=== PATIENT | male | born 1950 | race Caucasian/White ===

== ENCOUNTER 2017-08-17 13:45 | Emergency (ER) | payer BC, SELFPAY ==
[2017-08-17 13:45] VITALS: BP 121/73; PULSE 103; RESP 16; TEMP 36.3; O2SAT 96; BMI 26.1
[2017-08-17 14:25] LABS: Absolute Lymphocyte Count 1.78 X10^3/ul (0.83-4.51); Basophil# 0.02 X10^3/uL; Basophil% 0.2 % (0-1); Eosinophil# 0.32 X10^3/uL; Eosinophils% 3.5 % (0-5); Hematocrit 41.6 % (40-54); Lymphocyte # 1.78 X10^3/ul (4.0); Lymphocyte % 19.2 % (19-41); Mean Corp Hgb Conc 33.7 g/gl (32-36); Mean Corpuscular Hgb 29.6 pg (27.0-32.0); Mean Corpuscular Volume 87.9 fL (80-94); Mean Platelet Vol. 10.2 fl (6.2-12.0); Monocyte# 1.13 X10^3/uL; Monocyte% 12.2 % (0-10); Neutrophil # 5.98 X10^3/uL (2.7-7.7); Neutrophil % 64.6 % (47-70); POSITIVE COUNT NO; POSITIVE DIFFERENTIAL NO; POSITIVE MORPHOLOGY NO; Platelet Count 218 K/mm3 (150-450); RBC Distribution Width CV 13.8 % (11.6-14.6); Red Blood Count 4.73 M/mm3 (4.6-6.2); White Blood Count 9.3 K/mm3 (4.4-11.0)
[2017-08-17 14:40] LABS: ALB/GLOB Ratio 0.8 RATIO (0.9-2.4); AST(SGOT) 22 U/L (15-37); Alanine Aminotransfer ALT/SGPT 20 U/L (16-61); Albumin, Serum 3.2 g/dL (3.2-5.0); Alkaline Phosphatase 95 U/L (45-117); Anion Gap 7 (5-15); BUN 8 mg/dL (7-18); BUN/Creat Ratio 6.6 RATIO (10-20); Calcium,Total 8.4 mg/dL (8.5-10.1); Chloride 102 mmol/L (98-107); Creatinine, Serum 1.22 mg/dL (0.70-1.30); EST Glomerular Filtration Rate 63 mL/min (>60); Est Glom Filt Rate - Afr Amer 76 mL/min (>60); Estimated Creatinine Clearance 57.95 ml/min; Globulin 4.2 g/dL (2.2-4.2); Glucose 106 mg/dL (74-106); Potassium 3.3 mmol/L (3.5-5.1); Protein, Total 7.4 g/dL (6.4-8.2); Sodium Level 138 mmol/L (136-145)
--- NOTE | 2017-08-17 15:16 | ED.DCSUM_ITS ---
- ER Visit Summary Date of Service: 08/17/17 Chief Complaint: Diarrhea History of Present Illness: The patient is a 67 M who presents with diarrhea. He has had this for 3 weeks. He was concerned today because he saw some blood with it. He denies any abdominal pain, nausea or vomiting. He has been trying Imodium that does help slightly but then it returns. He has never had any abdominal surgeries. He has had C. difficile and enteric pathogens testing as an outpatient both of which were negative. Physical Examination: Vital signs reviewed. HEENT exam unremarkable. Heart is regular rate and rhythm without murmurs. Lungs are clear to auscultation. Abdomen is soft and nontender. Extremities reveal no edema. Skin exam normal. Neurologic exam normal. Test Results: Labs are unremarkable except for potassium of 3.3. Hemoglobin normal Emergency Department Course and Treatment: Patient was given IV fluids. He feels improved. I will give him Lomotil for his diarrhea. He will need to follow-up with his primary care physician if his diarrhea persists. Treatment Plan: [] Disposition: Discharge Impression: Diarrhea This note was generated with [facility] dictation software. It may contain incorrect words, spelling, and punctuation that were not noted in review of the chart prior to signing ED Disposition - Plan for ED Patient: Chief Complaint: Diarrhea Referrals: Chyna Luna MD [Primary Care Provider] -
--- NOTE | 2017-08-17 15:16 | ED.DEP ---
ED Disposition - Plan for ED Patient: Disposition: Home or Assisted Living Chief Complaint: Diarrhea Instructions: ED Diarrhea Viral Prescriptions: Diphenoxylate/Atrop [Lomotil] 1 tab PO TID PRN PRN #30 tab PRN Reason: Diarrhea Referrals: Chyna Luna MD [Primary Care Provider] -
[2017-08-17 15:33] VITALS: BP 116/77; PULSE 83; RESP 16
== END 2017-08-17 15:34 | disposition home or self-care (01) ==
PROVIDERS: Emergency Provider Emergency Medicine; Family Provider Internal Medicine; PCP Internal Medicine
DX: R19.7 Diarrhea, unspecified (principal); Z79.899 Other long term (current) drug therapy; Z87.442 Personal history of urinary calculi; Z86.73 Personal history of transient ischemic attack (TIA), and cerebral infarction without residual deficits
CPT/HCPCS: 80053; 85025; 99283; J7040; A4216

== ENCOUNTER 2017-09-13 11:12 | Emergency (ER) | payer BC, SELFPAY ==
[2017-09-13 11:13] VITALS: BP 112/88; PULSE 119; RESP 18; TEMP 36.9; O2SAT 95; BMI 24.5
--- NOTE | 2017-09-13 11:23 | CT_ITS ---
STUDY: CT ABDOMEN AND PELVIS WITH CONTRAST REASON FOR EXAM: Male, 67 years old. Crohn's disease. History of nausea and vomiting. RADIATION DOSAGE (If Supplied By Facility): CTDIvol = ( 14.05 ) mGy, DLP = ( 781.76 ) mGycm TECHNIQUE: Transaxial images were obtained from the dome of the diaphragm to the symphysis pubis with oral contrast. 100 ml of Isovue 300 contrast was administered. Sagittal and coronal images were reconstructed. Individualized dose optimization techniques were used for this CT. COMPARISON: Comparison is made with prior study dated April 10, 2016. FINDINGS: Stable mild degree of increased markings at the lung bases suggestive of underlying atelectasis and/or scarring. The visualized portions of the heart are within normal limits. There is decreased attenuation of the liver consistent with steatosis. Solitary gallstone in the region of the neck of the gallbladder. This is unchanged. Normal spleen. Normal pancreas. Normal bilateral adrenal glands. There are 2 adjacent 1 cm stones in the mid lower portion of the right kidney. There is a 6.2 mm nonobstructive calculus in the upper pole of the left kidney. Tiny nonobstructive calculi also seen in the midportion of the left kidney as well as a 8.6 mm calyx in the lower pole of the left kidney. There is evidence of diffuse left renal atrophy. There is a small hiatal hernia. Normal small intestine. There is diffuse circumferential wall thickening of the entire colon with increased markings in the surrounding peritoneal fat in keeping with diffuse colitis. The appendix is visualized and appears normal. There is diffuse atherosclerotic calcification of the abdominal aorta. There is a dilatation of the distal portion of the aorta with a transverse dimension of 2.8 cm. Mural thrombus is seen. Normal inferior vena cava. Normal retroperitoneum. Normal urinary bladder. There is a small umbilical hernia containing fat. There are degenerative changes of the visualized lumbar spine. CT/Abdomen/Pelvis WITH Contrast IMPRESSION: Diffuse colitis with increased markings in the surrounding peritoneal fat. This is worse in the right hemicolon. Solitary gallstone in the neck of the gallbladder. Atrophy of the left kidney with bilateral nonobstructive intrarenal calculi. Electronically Signed: Michelet Hudson MD at 14:07 EDT Tel [phone], Service support ,
--- NOTE | 2017-09-13 11:23 | EKG12_ITS ---
Test Reason : N/V/D Blood Pressure : / mmHG Vent. Rate : 100 BPM Atrial Rate : 100 BPM P-R Int : 128 ms QRS Dur : 088 ms QT Int : 358 ms P-R-T Axes : 035 012 005 degrees QTc Int : 461 ms Normal sinus rhythm Normal ECG Confirmed by LUIS MARCOS ([id number]), newspaper photo editor SHAYNE CARBALLO ([id number]) on 09/25/2017 5:41:45 PM Referred By: FERNANDO Confirmed By:LUIS MARCOS
--- NOTE | 2017-09-13 11:37 | ED.DCSUM_ITS ---
- ER Visit Summary Date of Service: 09/13/17 Chief Complaint: Vomiting and diarrhea History of Present Illness: The patient is a 67 M presenting with vomiting and diarrhea. He states this has been ongoing for several weeks. He was admitted to [facility] and discharged 10 days ago. He was diagnosed with Crohn's disease during that admission. He was started on prednisone. He continues to have vomiting and diarrhea. He denies blood in his stool. He has diffuse abdominal cramping. He was concerned about dehydration and generalized weakness today. Denies fever. Denies other complaints. Physical Examination: Vitals are stable. Patient is afebrile. Alert no acute distress. HEENT exam dry mucous membranes Neck is supple. Lungs are clear and equal bilaterally. Heart is regular rate and rhythm. Abdomen is soft diffuse tenderness, no rebound or guarding. Extremities are unremarkable. Skin is warm and dry. No focal neurologic deficit. Remainder of exam is unremarkable. Emergency Department Course and Treatment: Patient was given Zofran per EMS. He was given morphine and IV fluids. CBC showed hemoglobin 12.0. Chemistries show potassium 3.4, glucose 141. Lipase is 37. Troponin is negative. Lactic acid 2.2. EKG is sinus rate of 100. CT abdomen pelvis shows diffuse colitis with increased markings in the surrounding peritoneal fat. This is worse in the right hemicolon. Solitary gallstone in the neck of the gallbladder. Atrophy of the left kidney with bilateral nonobstructive intrarenal calculi. Patient and family prefer to be transferred to [facility]. Discussed with [facility] and arranged transfer. Disposition: Transfer to [facility] Impression: Diarrhea, Crohn's exacerbation This note was generated with [employer] dictation software. It may contain incorrect words, spelling, and punctuation that were not noted in review of the chart prior to signing ED Disposition - Plan for ED Patient: Chief Complaint: Nausea/Vomiting/Diarrhea Referrals: Chyna Luna MD [Primary Care Provider] -
[2017-09-13] MEDS: Morphine 4 MG/ML Syringe IV ×2 (11:38→15:55)
[2017-09-13] MEDS: 0.9% Normal Saline 1,000 ML 1000 ML IV (11:38)
[2017-09-13 11:54] LABS: Absolute Lymphocyte Count 1.63 X10^3/ul (0.83-4.51); Absolute Neutrophil Count 5.9 X10^3/uL (2.0-7.7); Basophil# 0.02 X10^3/uL; Basophil% 0.2 % (0-1); Eosinophil# 0.04 X10^3/uL; Eosinophils% 0.5 % (0-5); Hematocrit 36.3 % (40-54); Lymphocyte # 1.63 X10^3/ul (4.0); Lymphocyte % 19.9 % (19-41); Mean Corp Hgb Conc 33.1 g/gl (32-36); Mean Corpuscular Hgb 27.5 pg (27.0-32.0); Mean Corpuscular Volume 83.1 fL (80-94); Mean Platelet Vol. 9.1 fl (6.2-12.0); Monocyte# 0.52 X10^3/uL; Monocyte% 6.3 % (0-10); Neutrophil # 5.94 X10^3/uL (2.7-7.7); Neutrophil % 72.6 % (47-70); Platelet Count 283 K/mm3 (150-450); RBC Distribution Width CV 14.8 % (11.6-14.6); RBC Distribution Width SD 44.5 fl (35.1-43.9); Red Blood Count 4.37 M/mm3 (4.6-6.2); White Blood Count 8.2 K/mm3 (4.4-11.0)
[2017-09-13 11:56] LABS: ALB/GLOB Ratio 0.3 RATIO (0.9-2.4); AST(SGOT) 29 U/L (15-37); Alanine Aminotransfer ALT/SGPT 26 U/L (16-61); Albumin, Serum 1.4 g/dL (3.2-5.0); Alkaline Phosphatase 78 U/L (45-117); Anion Gap 12 (5-15); BUN 8 mg/dL (7-18); BUN/Creat Ratio 9.4 RATIO (10-20); Calcium,Total 7.4 mg/dL (8.5-10.1); Chloride 99 mmol/L (98-107); Creatinine, Serum 0.85 mg/dL (0.70-1.30); EST Glomerular Filtration Rate 95 mL/min (>60); Est Glom Filt Rate - Afr Amer 115 mL/min (>60); Estimated Creatinine Clearance 83.18 ml/min; Globulin 4.4 g/dL (2.2-4.2); Glucose 141 mg/dL (74-106); Lipase 37 U/L (73-393); Potassium 3.4 mmol/L (3.5-5.1); Protein, Total 5.8 g/dL (6.4-8.2); Sodium Level 137 mmol/L (136-145)
[2017-09-13 11:57] LABS: Differential Indicated SCAN CRITERIA MET; POSITIVE COUNT NO; POSITIVE DIFFERENTIAL NO; POSITIVE MORPHOLOGY YES
[2017-09-13 12:09] LABS: Lactic Acid 2.2 mmol/L (0.4-2.0)
--- NOTE | 2017-09-13 12:09 | ED.RN ---
LAB RESULTED LACTIC 2.2, PHYSICIAN AWARE
[2017-09-13 12:24] LABS: Differential Comment SCANNED
[2017-09-13 14:25] VITALS: BP 124/86; PULSE 98; RESP 16; O2SAT 100
[2017-09-13 14:29] LABS: Bacteria 0 SEEN /hpf (None Seen); Mucous, Urine 0 SEEN /hpf (<or=2+); Red Blood Cells-Urine 0 SEEN /hpf (0-5); Squamous Epithelial Cells - UA 0 SEEN /hpf (0-5); White Blood Cells 0 SEEN /hpf (0-5)
[2017-09-13 14:32] LABS: Color, Urine Yellow (Yellow); Glucose, Dipstick Normal (Normal); Ketone-Dipstick Negative (Negative); Leukocyte Esterase-Dipstick 25 /ul (Negative); Nitrite-Dipstick Negative (Negative); Occult Blood-Urine 10 /ul (Negative); Protein-Dipstick 30 mg/dl (Negative); Urine Bilirubin Dipstick Negative (Negative); Urine Clarity Clear (Clear); Urine Urobilinogen Normal (Normal)
[2017-09-13 15:34] LABS: Reflex Lactate? Y
[2017-09-13] MEDS: Ondansetron 4 MG/2 ML Vial IV (15:55)
[2017-09-13 15:58] VITALS: BP 116/78; PULSE 111; RESP 20; O2SAT 94
[2017-09-13 16:00] VITALS: BP 122/71; PULSE 101; RESP 18; O2SAT 94
[2017-09-13 17:17] VITALS: BP 122/71; PULSE 103; RESP 16; O2SAT 94
== END 2017-09-13 17:37 | disposition short-term general hospital (02) ==
PROVIDERS: Emergency Provider Emergency Medicine; Family Provider Internal Medicine; PCP Internal Medicine
DX: K50.10 Crohn's disease of large intestine without complications (principal); R19.7 Diarrhea, unspecified; K80.80 Other cholelithiasis without obstruction; N26.1 Atrophy of kidney (terminal); N20.0 Calculus of kidney; K21.9 Gastro-esophageal reflux disease without esophagitis; I10 Essential (primary) hypertension; E78.00 Pure hypercholesterolemia, unspecified; Z79.02 Long term (current) use of antithrombotics/antiplatelets; Z79.899 Other long term (current) drug therapy
CPT/HCPCS: 74177; 80053; 81001; 83605; 83690; 84484; 85025; 93005; 96361; 96374; 96376; 99285; J7030; A4216; J2405

== ENCOUNTER 2021-01-05 09:05 | Emergency (ER) | payer MEDICARE, OTHER, SELFPAY ==
[2021-01-05 09:05] VITALS: BP 152/98; PULSE 92; RESP 16; TEMP 36.7; O2SAT 99; BMI 23.6
[2021-01-05] MEDS: Ondansetron 4 MG/2 ML Vial IV (09:33)
[2021-01-05] MEDS: HYDROmorphone 1 MG/ML Syringe 0.5 MG IV (09:33)
[2021-01-05 09:34] LABS: Absolute Lymphocyte Count 1.31 X10^3/uL (0.83-4.51); Absolute Neutrophil Count 7.9 X10^3/uL (2.0-7.7); Basophil# 0.02 X10^3/uL; Basophil% 0.2 % (0-1); Eosinophil# 0.02 X10^3/uL; Eosinophils% 0.2 % (0-5); Hematocrit 48.1 % (40-54); Hemoglobin 15.5 g/dL (13.0-16.5); Lymphocyte # 1.31 X10^3/ul (0.83-4.51); Lymphocyte % 13.3 % (19-41); Mean Corp Hgb Conc 32.2 g/dL (32-36); Mean Corpuscular Hgb 28.7 pg (27.0-32.0); Mean Corpuscular Volume 88.9 fL (80-94); Mean Platelet Vol. 11.1 fl (6.2-12.0); Monocyte# 0.58 X10^3/uL; Monocyte% 5.9 % (0-10); NRBC Flagged by Analyzer 0 % (0-5); Neutrophil # 7.87 X10^3/uL (2.7-7.7); Platelet Count 156 K/mm3 (150-450); RBC Distribution Width CV 14.4 % (11.6-14.6); RBC Distribution Width SD 46.4 fl (35.1-43.9); Red Blood Count 5.41 M/mm3 (4.6-6.2); White Blood Count 9.8 K/mm3 (4.4-11.0)
[2021-01-05] MEDS: 0.9% Normal Saline 1,000 ML 125 ML IV (09:36)
[2021-01-05 09:51] VITALS: O2SAT 93
[2021-01-05 09:54] LABS: AST(SGOT) 18 U/L (15-37); Alanine Aminotransfer ALT/SGPT 28 U/L (16-61); Albumin, Serum 3.9 g/dL (3.2-5.0); Alkaline Phosphatase 92 U/L (45-117); Anion Gap 7 (5-15); BUN 14 mg/dL (7-18); BUN/Creat Ratio 12.5 RATIO (10-20); Bilirubin, Direct 0.15 mg/dL (0.00-0.30); Calcium,Total 9.2 mg/dL (8.5-10.1); Chloride 107 mmol/L (98-107); Creatinine, Serum 1.12 mg/dL (0.70-1.30); EST Glomerular Filtration Rate 69 mL/min (>60); Est Glom Filt Rate - Afr Amer 83 mL/min (>60); Estimated Creatinine Clearance 62.46 ml/min; Globulin 4.1 g/dL (2.2-4.2); Glucose 129 mg/dL (74-106); Lipase 200 U/L (73-393); Potassium 3.6 mmol/L (3.5-5.1); Sodium Level 138 mmol/L (136-145)
--- NOTE | 2021-01-05 10:04 | US_ITS ---
STUDY: ABDOMINAL ULTRASOUND - RIGHT UPPER QUADRANT REASON FOR VISIT: Male, 70 years old right upper quadrant and right flank pain. TECHNIQUE: Ultrasound evaluation of the right upper quadrant was performed with real-time and static salgado-scale imaging. TECHNICAL QUALITY: Adequate. COMPARISON: None. FINDINGS: Liver: The liver measures 15 cm. There is increased echogenicity consistent with fatty infiltration. The bile ducts are within normal limits. There is hepatic color flow. The direction of portal flow is hepatopetal. There is no demonstrated mass lesion. Gallbladder: Normal distended gallbladder. The gallbladder wall measures 10.7 mm. There is a negative sonographic Roth''s sign. There is no pericholecystic fluid. There are no gallstones. Sludge is seen within the gallbladder lumen. Common Bile Duct (C.B.D.): The common bile duct measures 5.6 mm. Pancreas: Normal size of the head, body and tail of the pancreas. There is normal echogenicity of the pancreas. There is no demonstrated pancreatic mass or cyst. Right Kidney: Normal size of the right kidney. The right kidney measures 11.7 cm x 5.3 cm x 4.3 cm. Normal renal cortex. The right cortex measures 1.2 cm. There is no demonstrated renal mass or cyst. There is no right hydronephrosis. Several nonobstructive intrarenal calculi are seen. The largest is in the lower pole and measures 6 mm x 4 mm x 4 mm. US/Gallbladder IMPRESSION: Fatty infiltration of the liver. Sludge in the gallbladder lumen. Nonobstructive right intrarenal calculi. Electronically Signed: Michelet Hudson MD at 11:10 EDT , Service support ,
[2021-01-05 11:26] LABS: Bacteria 0 SEEN /hpf (None Seen); Red Blood Cells-Urine 0 SEEN /hpf (0-5); White Blood Cells 0 SEEN /hpf (0-5)
[2021-01-05 11:27] LABS: Color, Urine Yellow (Yellow); Glucose, Dipstick Normal (Normal); Ketone-Dipstick Negative (Negative); Leukocyte Esterase-Dipstick Negative /ul (Negative); Nitrite-Dipstick Negative (Negative); Occult Blood-Urine Negative /ul (Negative); Protein-Dipstick Negative (Negative); Urine Bilirubin Dipstick Negative (Negative); Urine Clarity Clear (Clear); Urine Urobilinogen Normal (Normal)
[2021-01-05 11:40] LABS: Mucous, Urine RARE /hpf (<or=2+); Squamous Epithelial Cells - UA 0-5 SEEN /hpf (0-5)
--- NOTE | 2021-01-05 11:56 | ED.VIS.GI ---
HPI HPI - GI History of Present Illness Chief Complaint: Flank Pain Informant: patient and spouse/S.O. Abdominal Pain/Flank Pain Onset: Today and Days (Similar episode 10 days ago) Context: Sudden Onset Timing: Continuous and Waxes and wanes Quality: Cramping Current Severity: Moderate Maximum Severity: Severe Worsened by: Nothing Relieved by: Nothing Nausea/Vomiting/Emesis GI Symptom: Positive for Nausea; Negative for Vomiting Onset: Yesterday Quality: Negative for Nonbilious, Blood streaks and Coffee ground Diarrhea/Melena/Hematochezia GI Symptom: Negative for Diarrhea, Melena and Hematochezia Associated Symptoms Associated Symptoms: Negative for Dysuria, Frequency and Hematuria Narrative Narrative: Patient is a 70-year-old male with history of renal/ureterolithiasis who presents with right upper quadrant pain rating through to his back. Pain started at 11 PM. At 6 PM he had potato soup. He states he had similar episode 10 days ago. He does not recall what he ate that evening. He does report intolerance to greasy and fried foods. He does not know if there is a family history of cholelithiasis. He denies cardiac respiratory symptoms. He denies dysuria, frequency, urgency or hematuria. There is no history of trauma. He denies fever or chills Prior similar symptoms: Yes (Ureterolithiasis) Recent Illness/Hospitalization: No PFSH [facility] Medical History Former smoker Kidney stones Stroke/cerebrovascular accident Home Medications omeprazole 20 mg PO DAILY 03/06/16 [History Last Taken 04/09/16] amlodipine 5 mg PO DAILY #30 tablet 03/24/16 [Rx Last Taken 04/09/16] atorvastatin 80 mg PO DAILY@2200 #30 tablet 03/24/16 [Rx Last Taken 04/09/16] clopidogrel 75 mg PO DAILY #30 tablet 03/24/16 [Rx Last Taken 04/09/16] lisinopril 20 mg PO DAILY #30 tablet 03/24/16 [Rx Last Taken 04/09/16] prednisone 30 mg PO DAILY 09/13/17 [History Last Taken Unknown] oxycodone-acetaminophen 1 tab PO Q6H PRN PRN 5 Days #20 tablet 01/05/21 [Rx Last Taken Unknown] Allergy/AdvReac Type Severity Reaction Status Date / Time No Known Allergies Allergy Verified 01/05/21 09:08 Social History (Updated 01/05/21 @ 12:[address] Casper Andrade MD) household members: significant other Smoking Status: Former smoker alcohol intake: current alcohol intake frequency: other substance use type: does not use ROS ROS ED Constitutional Constitutional ED: Denies chills, fever(s), subjective or sweats ENT ENT ED: Denies ear pain, rhinorrhea or sore throat Cardiovascular Cardiovascular: Denies chest pain, orthopnea, palpitations, paroxysmal nocturnal dyspnea or racing heartbeat Respiratory/Chest Respiratory/Chest: Denies dyspnea, dyspnea on exertion, orthopnea, paroxysmal nocturnal dyspnea or sputum Gastrointestinal Gastrointestinal: Reports abdominal pain and nausea; Denies constipation, diarrhea or vomiting Genitourinary Genitourinary ED: Denies dysuria, hematuria or urinary frequency Musculoskeletal Musculoskeletal: Reports back pain; Denies arthralgias, myalgias or neck pain Integumentary Denies abscess, Abrasions or rash Neurologic Neurologic: Denies headache(s) or weakness Psychiatric Psychiatric: Denies anxiety or depression Hematologic/Lymphatic Hematologic/Lymphatic: Denies easy bleeding or easy bruising EXAM Physical Exam Const Vital Signs: 01/05/21 09:05 01/05/21 09:51 01/05/21 10:49 Temperature 98.1 F Temperature Source Temporal Pulse Rate 92 Respiratory Rate 16 Blood Pressure 152/98 H Blood Pressure Mean 116 Pulse Ox 99 93 Oxygen Delivery Method Room Air Nasal Cannula Room Air Oxygen Flow Rate (L/min) 2 01/05/21 11:57 Temperature Temperature Source Pulse Rate 86 Respiratory Rate Blood Pressure 156/98 H Blood Pressure Mean 117 Pulse Ox 97 Oxygen Delivery Method Room Air Oxygen Flow Rate (L/min) Positive well nourished and well developed; Negative for obese General Appearance ED: well developed; Negative for NAD or pallor Nutritional Appearance: Negative for obese HEENT Reports TM's clear and moist mucous membranes normocephalic and atraumatic Tympanic Membrane ED: Yes TM's clear Eyes PERRL and EOMs intact bilaterally General Eye ED: Negative for pale conjunctiva or scleral icterus Neck no lymphadenopathy, supple and no JVD Resp normal respiratory effort and clear to auscultation bilaterally Auscultation: Negative for rales Cardio regular rate, regular rhythm, S1 normal heart sound, S2 normal heart sound and no murmurs GI non-distended and no masses; Negative for non-tender Auscultation: normoactive bowel sounds Palpation: soft and tender RLQ and Roth's sign; Negative for guarding, rigid, hepatomegaly, splenomegaly, pulsatile mass or rebound tenderness present Back/Spine no CVA tenderness Cervical Spine: Negative for cervical spine tenderness Thoracic Spine / Upper Back: Negative for thoracic spinal tenderness Lumbar Spine / Lower Back: Negative for lumbar spinal tenderness Extremity full ROM General Extremety ED: Negative for edema General Extremity: Negative for edema Neuro CN's II-XII intact bilaterally Sensorium / Orientation: alert, oriented to person, oriented to place and oriented to time Motor Exam: strength 5/5 throughout Psych mental status grossly normal and thought process normal Skin no wounds General Skin Exam: Negative for jaundice or pallor Lesions: no lesions Rashes: no rashes MDM MDM MDM Narrative Medical decision making narrative: With intolerance to greasy and fried foods right upper quadrant pain with positive Roth sign concern patient has biliary disease. CBC, liver profile, lipase was obtained. Ultrasound reveals sludge with slight thickening of the gallbladder wall. There is also a solitary right renal stone. There is no hydronephrosis. Patient was reassessed at 1200. His pain has resolved. He was discharged home with prescription for pain medicine and requested follow-up with [facility] surgeon. He was given Dr. Hong's name. Lab Data Attestation: I reviewed the patient's lab results. Labs: Laboratory Results - last 24 hr 01/05/21 01/05/21 01/05/21 09:25 09:25 11:21 WBC 9.8 RBC 5.41 Hgb 15.5 Hct 48.1 MCV 88.9 MCH 28.7 MCHC 32.2 RDW Std Deviation 46.4 H RDW Coeff of Margaret 14.4 Plt Count 156 MPV 11.1 Immature Gran % (Auto) 0.400 Neut % (Auto) 80.0 H Lymph % (Auto) 13.3 L [place] % (Auto) 5.9 Eos % (Auto) 0.2 Baso % (Auto) 0.2 Absolute Neuts (auto) 7.9 H Absolute Lymphs (auto) 1.31 Nucleated RBC % 0 Sodium 138 Potassium 3.6 Chloride 107 Carbon Dioxide 24.0 Anion Gap 7 BUN 14 Creatinine 1.12 Estim Creat Clear Calc 62.46 Est GFR (MDRD) Af Amer 83 Est GFR (MDRD) Non-Af 69 BUN/Creatinine Ratio 12.5 Glucose 129 H Calcium 9.2 Total Bilirubin 0.70 Direct Bilirubin 0.15 AST 18 ALT 28 Alkaline Phosphatase 92 Total Protein 8.0 Albumin 3.9 Globulin 4.1 Lipase 200 Urine Color Yellow Urine Clarity Clear Urine pH 5.0 Ur Specific [place] 1.020 Urine Protein Negative Urine Glucose (UA) Normal Urine Ketones Negative Urine Occult Blood Negative Urine Nitrite Negative Urine Bilirubin Negative Urine Urobilinogen Normal Ur Leukocyte Esterase Negative Urine RBC 0 SEEN Urine WBC 0 SEEN Ur Squamous Epith Cells 0-5 SEEN Urine Bacteria 0 SEEN Urine Mucus RARE Radiography Diagnostic Testing: Radiology Impression Gallbladder Ultrasound 01/05/21 10:04 IMPRESSION: Fatty infiltration of the liver. Sludge in the gallbladder lumen. Nonobstructive right intrarenal calculi. Electronically Signed: Michelet Hudson MD at 11:10 EDT , Service support , Discharge Plan Triage Chief Complaint: Flank Pain ED Provider: Casper Andrade Dx/Rx/DC Orders Clinical Impression: Biliary colic, Sludge in gallbladder, Renal calculus, right Instructions: ED Gallstones with Biliary Colic, ED Kidney Stone Undescended No ... Prescriptions: New oxycodone-acetaminophen [oxycodone-acetaminophen] 1 TABLET tablet 1 tab PO Q6H PRN PRN (Reason: pain) 5 Days Qty: 20 RF: 0 No Action omeprazole 20 MG capsule 20 mg PO DAILY RF: 0 lisinopril 20 MG tablet 20 mg PO DAILY Qty: 30 RF: 0 atorvastatin 80 MG tablet 80 mg PO DAILY@2200 Qty: 30 RF: 0 clopidogrel 75 MG tablet 75 mg PO DAILY Qty: 30 RF: 0 amlodipine 5 MG tablet 5 mg PO DAILY Qty: 30 RF: 0 prednisone 20 MG tablet 30 mg PO DAILY RF: 0 Primary Care Provider: Chyna Luna Referrals: Deshawn Hong MD [STAFF PHYSICIAN] - 3-5 Days Chyna Luna MD [Primary Care Provider] - Disposition Disposition: Home, Self Care
[2021-01-05 11:57] VITALS: BP 156/98; PULSE 86; O2SAT 97
[2021-01-05 12:21] VITALS: BP 159/92; PULSE 81; RESP 18; O2SAT 98
== END 2021-01-05 12:33 | disposition home or self-care (01) ==
PROVIDERS: Emergency Provider Emergency Medicine; PCP Internal Medicine
DX: K80.50 Calculus of bile duct without cholangitis or cholecystitis without obstruction (principal); N20.0 Calculus of kidney; R10.11 Right upper quadrant pain; Z79.52 Long term (current) use of systemic steroids; Z79.02 Long term (current) use of antithrombotics/antiplatelets; Z79.899 Other long term (current) drug therapy; Z87.442 Personal history of urinary calculi; Z86.73 Personal history of transient ischemic attack (TIA), and cerebral infarction without residual deficits; Z87.891 Personal history of nicotine dependence
CPT/HCPCS: 76705; 80048; 80076; 81001; 83690; 85025; 96361; 96374; 96375; 99284; J7030; A4216; J2405

== ENCOUNTER 2021-10-01 13:46 | Emergency (ER) | payer MEDICARE, OTHER, SELFPAY ==
[2021-10-01 13:47] VITALS: BP 137/96; PULSE 106; RESP 18; TEMP 36.4; O2SAT 96; BMI 25.8
--- NOTE | 2021-10-01 15:13 | CT_ITS ---
STUDY: CT BRAIN WITHOUT CONTRAST REASON FOR EXAM: Male, 71 years old. headache RADIATION DOSAGE (If Supplied By Facility): CTDIvol = ( 47.06 ) mGy, DLP = ( 872.68 ) mGycm TECHNIQUE: Transaxial CT imaging of the brain was performed without administration of intravenous contrast material. Individualized dose optimization techniques were used for this CT. COMPARISON: 03/06/2016 FINDINGS: Normal soft tissue structures. Normal calvarium. There is mild cerebral atrophy with widening of the extra-axial spaces and ventricular dilatation. There are areas of decreased attenuation within the white matter tracts of the supratentorial brain, consistent with microvascular disease changes. Normal basal ganglia and thalami. Normal brainstem. Normal cerebellum. There is no intracranial hemorrhage. There are no findings of an acute ischemic infarction. Normal visualized paranasal sinuses. CT/Brain/Head without Contrast IMPRESSION: Chronic involutional changes of the brain. Electronically Signed: Harrison Goff MD at 16:15 EDT ,
--- NOTE | 2021-10-01 15:13 | EKG12_ITS ---
Test Reason : WEAKNESS Blood Pressure : / mmHG Vent. Rate : 085 BPM Atrial Rate : 085 BPM P-R Int : 168 ms QRS Dur : 094 ms QT Int : 364 ms P-R-T Axes : 042 -09 030 degrees QTc Int : 433 ms Normal sinus rhythm Normal ECG Confirmed by OKSANA CAMP MD ([id number]), supervising editor news reel FRANK MELISSA ([id number]) on 10/04/2021 12:42:11 PM Referred By: NELIDA Confirmed By:OKSANA CAMP MD
--- NOTE | 2021-10-01 15:16 | EX.ED.DYSGE1 ---
HPI History of Present Illness Chief Complaint: Weakness Informant: patient and spouse/S.O. Onset/Context/Timing Onset: Month(s) Context: Gradual Onset Timing: Continuous Current Severity: Mild Maximum Severity: Mild Narrative Narrative: 71-year-old male history of prior stroke and kidney stones. On Plavix. States he just feels generally weak. He has for last 2 years since his stroke. Worse in the last several months. Complaining of a recent headache. Denies any falls or trauma. States is behind both eyes. Denies any dysuria but has had frequent urination. Denies any fever. Nausea but no vomiting. No diarrhea. No melena. Prior similar symptoms: Yes Recent Illness/Hospitalization: No PFSH PFSH Medical History Former smoker Kidney stones Stroke/cerebrovascular accident Home Medications omeprazole 20 mg capsule,delayed release 20 mg PO DAILY 03/06/16 [History Last Taken 04/09/16] amlodipine 5 mg tablet 5 mg PO DAILY ##30 03/24/16 [Rx Last Taken 04/09/16] atorvastatin 80 mg tablet 80 mg PO DAILY@2200 ##30 03/24/16 [Rx Last Taken 04/09/16] clopidogrel 75 mg tablet 75 mg PO DAILY ##30 03/24/16 [Rx Last Taken 04/09/16] lisinopril 20 mg tablet 20 mg PO DAILY ##30 03/24/16 [Rx Last Taken 04/09/16] prednisone 20 mg tablet 30 mg PO DAILY 09/13/17 [History Last Taken Unknown] oxycodone-acetaminophen 5 mg-325 mg tablet 1 tab PO Q6H PRN PRN pain 5 days #20 TABLETS 01/05/21 [Rx Last Taken Unknown] Allergy/AdvReac Type Severity Reaction Status Date / Time No Known Allergies Allergy Verified 10/01/21 13:50 Social History household members: significant other Smoking Status: Former smoker alcohol intake: current alcohol intake frequency: other substance use type: does not use ROS ROS ED ROS Narrative Generalized weakness. Nausea. Headache. Review of Systems ROS Unobtainable: Denies due to encephalopathy Constitutional Constitutional ED: Denies chills Eyes Eyes: Denies blurry vision ENT ENT ED: Denies ear pain Cardiovascular Cardiovascular: Denies chest pain Respiratory/Chest Respiratory/Chest: Denies cough or dyspnea Gastrointestinal Gastrointestinal: Denies abdominal pain, constipation or diarrhea Genitourinary Genitourinary ED: Reports urinary frequency; Denies dysuria, hematuria or LMP (females 10-50) Musculoskeletal Musculoskeletal: Denies arthralgias Integumentary Denies abscess Neurologic Neurologic: Reports headache(s) Psychiatric Psychiatric: Denies anxiety Endocrine Endocrinology: Denies cold intolerance Allergic/Immunologic Allergic/Immunologic ED: Denies mouth swelling or tongue swelling EXAM Physical Exam Narrative Exam Narrative: 71-year-old male no acute distress. Vital signs stable afebrile. Pulse ox 96% on room air no hypoxia. H EENT exam unremarkable atraumatic. Normal speech. Moist use membranes. Neck nontender. Lungs clear to auscultation bilaterally. Heart regular rhythm rate about 105 no murmur. Abdomen soft nontender normal bowel sounds no peritoneal signs. Moving all 4 extremities. 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 Dorsi plantarflexion intact. Neurologic exam unremarkable. Const Vital Signs: 10/01/21 13:47 10/01/21 14:09 10/01/21 16:24 Temperature 97.6 F L Temperature Source Temporal Pulse Rate 106 H 82 Respiratory Rate 18 16 Respiratory Effort Normal Non-Labored Respiratory Pattern Normal Blood Pressure 137/96 H 122/84 H Blood Pressure Mean 109 96 Pulse Ox 96 94 Oxygen Delivery Method Room Air Room Air 10/01/21 16:26 10/01/21 17:44 10/01/21 17:44 Temperature 97.6 F L 97.6 F L Temperature Source Temporal Temporal Pulse Rate 82 78 78 Respiratory Rate 16 16 16 Respiratory Effort Respiratory Pattern Blood Pressure 122/84 H 123/96 H 123/96 H Blood Pressure Mean 105 105 Pulse Ox 94 93 93 Oxygen Delivery Method Room Air Room Air Room Air Positive well nourished and well developed; Negative for obese, cachectic, contractures or unkempt General Appearance ED: well developed; Negative for unkempt, cachectic, contractures or pallor Nutritional Appearance: Negative for cachectic or obese HEENT Reports moist mucous membranes; Denies dry mucous membranes Negative for trauma or tenderness Mouth ED: No dry mucous membranes Mouth: No dry mucous membranes Eyes PERRL and EOMs intact bilaterally General Eye ED: Negative for pale conjunctiva or scleral icterus Neck no lymphadenopathy, supple and no JVD General: Negative for tenderness Chest Wall inspection of chest normal and palpation of chest normal Resp normal respiratory effort and clear to auscultation bilaterally Effort and Inspection: Negative for retractions Auscultation: Negative for rales, rhonchi or wheezes Cardio regular rhythm, S1 normal heart sound and S2 normal heart sound; Negative for regular rate Rate: tachycardic GI normal to inspection, nondistended, normoactive bowel sounds, non-tender, non-distended and no masses; Negative for hepatosplenomegaly Inspection: Negative for abdominal distention Auscultation: normoactive bowel sounds Palpation: soft; Negative for tender Extremity normal to inspection Neuro oriented x3 Sensorium / Orientation: alert; Negative for orientation impaired, lethargic or stuporous Motor Exam: strength 5/5 throughout; Negative for general weakness Psych mental status grossly normal Appearance: Negative for unkempt Attitude: No agitated Mood & Affect: Negative for depressed or anxious Skin no rashes or lesions noted and no wounds General Skin Exam: elasticity normal; Negative for jaundice or pallor MDM MDM MDM Narrative Medical decision making narrative: 69-year-old male with headache and generalized weakness. Exam benign. CAT scan labs pending. IV fluids. For his headache will be treated with Reglan and Tylenol. Repeat exam patient doing well at 6:00 and 6:35 PM. Went over his test results. He can follow-up to have his platelet level rechecked. Otherwise we do not have a specific cause for his generalized weakness. He will be discharged home with outpatient follow-up. Lab Data Attestation: I reviewed the patient's lab results. Lab results narrative: CBC unremarkable white count of 5.4. H&H 14 and 44. Platelets are low at 97,000. Electrolytes showed a sodium 134 gap of 5 BUN of 16 creatinine 1.37. Glucose of 101. Chest x-ray chronic changes. Left lower lobe atelectasis. CT of the brain chronic changes. Urinalysis negative. No white cells. No red cells. No nitrites. Labs: Laboratory Results - last 24 hr 10/01/21 10/01/21 10/01/21 15:26 15:26 17:10 WBC 5.4 RBC 5.04 Hgb 14.7 Hct 44.0 MCV 87.3 MCH 29.2 MCHC 33.4 RDW Std Deviation 46.5 H RDW Coeff of Margaret 14.3 Plt Count 97 L MPV 10.1 Immature Gran % (Auto) 0.400 Neut % (Auto) 69.6 Lymph % (Auto) 15.8 L Leake % (Auto) 13.8 H Eos % (Auto) 0.2 Baso % (Auto) 0.2 Absolute Neuts (auto) 3.8 Absolute Lymphs (auto) 0.86 Nucleated RBC % 0 Platelet Estimate MOD DEC RBC Morphology NORM C+C Anisocytosis RARE Sodium 134 L Potassium 3.5 Chloride 101 Carbon Dioxide 28.0 Anion Gap 5 BUN 16 Creatinine 1.37 H Estim Creat Clear Calc 50.32 Est GFR (MDRD) Af Amer 66 Est GFR (MDRD) Non-Af 54 L BUN/Creatinine Ratio 11.7 Glucose 101 Calcium 8.8 Urine Color Yellow Urine Clarity Clear Urine pH 6.0 Ur Specific [place] 1.020 Urine Protein 30 H Urine Glucose (UA) Normal Urine Ketones 5 H Urine Occult Blood 25 H Urine Nitrite Negative Urine Bilirubin Negative Urine Urobilinogen Normal Ur Leukocyte Esterase Negative Urine RBC 0-5 SEEN Urine WBC 0-5 SEEN Ur Squamous Epith Cells 0 SEEN Urine Bacteria 1+ Urine Mucus 3+ Radiography Chest X-Ray - ED: 1 View, Read by ED Physician, Heart, Lungs, Mediastinum, Bony Structures, No Acute Disease and Chronic Changes Diagnostic Testing: Clinical Impression(s) from Imaging Studies Brain CT 10/01/21 15:13 IMPRESSION: Chronic involutional changes of the brain. Electronically Signed: Harrison Goff MD at 16:15 EDT , Chest X-Ray 10/01/21 15:30 IMPRESSION: Mild increased markings at the left lung base suggestive of atelectasis and/or scarring. Electronically Signed: Michelet Hudson MD at 15:46 EDT , Chest x-ray, portable, single view interpreted myself and radiologist shows left lower lung suspected atelectasis versus scarring. Rhythm Strip Rhythm Strip: Sinus Rhythm Rate: 85 Ectopy: None EKG Initial EKG: Attestation: I personally reviewed and interpreted this EKG as follows: Interpretation: Sinus Rhythm and No Acute Injury Pattern Comments: Normal sinus rhythm rate of 85 no acute signs of ND or ischemia. Discharge Plan Triage Chief Complaint: Weakness ED Provider: Eddie Perez Dx/Rx/DC Orders Clinical Impression: Weakness, Thrombocytopenia Instructions: Thrombocytopenia, ED Weakness (Uncertain Cause) Prescriptions: No Action omeprazole 20 MG capsule 20 mg PO DAILY Label Comments: reflux lisinopril 20 MG tablet 20 mg PO DAILY Qty: 30 0RF Label Comments: for BP atorvastatin 80 MG tablet 80 mg PO DAILY@2200 Qty: 30 0RF Label Comments: for cholesterol clopidogrel 75 MG tablet 75 mg PO DAILY Qty: 30 0RF Label Comments: helps prevent clots amlodipine 5 MG tablet 5 mg PO DAILY Qty: 30 0RF Label Comments: for BP prednisone 20 MG tablet 30 mg PO DAILY Label Comments: ON A TAPER oxycodone-acetaminophen [oxycodone-acetaminophen] 1 TABLET tablet 1 tab PO Q6H PRN PRN (Reason: pain) 5 Days Qty: 20 0RF Primary Care Provider: Chyna Luna Referrals: Chyna Luna MD [Primary Care Provider] - 1 Week Activity Restrictions/Additional Instructions: Your work-up today was unremarkable. Including chest x-ray and CAT scan. Your platelets are slightly low at 97,000 and those can be rechecked by your primary care physician when you follow-up. Disposition Disposition: Home, Self Care
--- NOTE | 2021-10-01 15:30 | RAD_ITS ---
STUDY: X-RAY CHEST REASON FOR EXAM: Male, 71 years old. Weakness TECHNIQUE: Single AP portable view of the chest. COMPARISON: Comparison is made with prior study dated 03/06/2016. FINDINGS: Hyperinflation. Mild increased linear markings at the left lung base suggestive of atelectasis and/or scarring. There is no demonstrated pleural abnormality. Normal size heart. Normal mediastinum and dieudonne. Normal visualized pulmonary arteries. There is atherosclerotic tortuosity of the aortic arch and descending thoracic aorta. There are degenerative changes of the visualized thoracic spine. Normal visualized ribs, clavicles, and shoulders. There is no demonstrated abnormality of the visualized soft tissue structures of the upper abdomen. RAD/Chest 1 View (Portable) IMPRESSION: Mild increased markings at the left lung base suggestive of atelectasis and/or scarring. Electronically Signed: Michelet Hudson MD at 15:46 EDT ,
[2021-10-01 15:34] LABS: Absolute Lymphocyte Count 0.86 X10^3/uL (0.83-4.51); Absolute Neutrophil Count 3.8 X10^3/uL (2.0-7.7); Basophil# 0.01 X10^3/uL; Basophil% 0.2 % (0-1); Eosinophil# 0.01 X10^3/uL; Eosinophils% 0.2 % (0-5); Hemoglobin 14.7 g/dL (13.0-16.5); Lymphocyte # 0.86 X10^3/ul (0.83-4.51); Lymphocyte % 15.8 % (19-41); Mean Corp Hgb Conc 33.4 g/dL (32-36); Mean Corpuscular Hgb 29.2 pg (27.0-32.0); Mean Corpuscular Volume 87.3 fL (80-94); Mean Platelet Vol. 10.1 fl (6.2-12.0); Monocyte# 0.75 X10^3/uL; Monocyte% 13.8 % (0-10); NRBC Flagged by Analyzer 0 % (0-5); Neutrophil # 3.79 X10^3/uL (2.7-7.7); Neutrophil % 69.6 % (47-70); POSITIVE COUNT YES; Platelet Count 97 K/mm3 (150-450); RBC Distribution Width CV 14.3 % (11.6-14.6); RBC Distribution Width SD 46.5 fl (35.1-43.9); Red Blood Count 5.04 M/mm3 (4.6-6.2); White Blood Count 5.4 K/mm3 (4.4-11.0)
[2021-10-01] MEDS: Acetaminophen 500 MG Tablet 1000 MG PO (15:38)
[2021-10-01] MEDS: 0.9% Normal Saline 1,000 ML 1000 ML IV (15:39)
[2021-10-01] MEDS: Metoclopramide 10 MG/2 ML Vial 5 MG IV (15:39)
[2021-10-01 15:51] LABS: Anion Gap 5 (5-15); BUN 16 mg/dL (7-18); BUN/Creat Ratio 11.7 RATIO (10-20); Calcium,Total 8.8 mg/dL (8.5-10.1); Chloride 101 mmol/L (98-107); Creatinine, Serum 1.37 mg/dL (0.70-1.30); EST Glomerular Filtration Rate 54 mL/min (>60); Est Glom Filt Rate - Afr Amer 66 mL/min (>60); Estimated Creatinine Clearance 50.32 ml/min; Glucose 101 mg/dL (74-106); Potassium 3.5 mmol/L (3.5-5.1); Sodium Level 134 mmol/L (136-145)
[2021-10-01 16:09] LABS: Differential Indicated SCAN CRITERIA MET
[2021-10-01 16:10] LABS: Platelet Estimate MOD DEC (ADEQ)
[2021-10-01 16:11] LABS: Anisocytosis RARE; Red Cell Morphology NORM C+C NORMAL (NORM C&C)
[2021-10-01 16:24] VITALS: BP 122/84; PULSE 82; RESP 16; O2SAT 94
[2021-10-01 16:26] VITALS: BP 122/84; PULSE 82; RESP 16; TEMP 36.4; O2SAT 94
[2021-10-01 17:28] LABS: Squamous Epithelial Cells - UA 0 SEEN /hpf (0-5)
[2021-10-01 17:44] VITALS: BP 123/96; PULSE 78; RESP 16; TEMP 36.4; O2SAT 93
[2021-10-01 17:46] LABS: Color, Urine Yellow (Yellow); Glucose, Dipstick Normal (Normal); Ketone-Dipstick 5 mg/dl (Negative); Leukocyte Esterase-Dipstick Negative /ul (Negative); Nitrite-Dipstick Negative (Negative); Occult Blood-Urine 25 /ul (Negative); Protein-Dipstick 30 mg/dl (Negative); Urine Bilirubin Dipstick Negative (Negative); Urine Clarity Clear (Clear); Urine Urobilinogen Normal (Normal)
[2021-10-01 18:00] LABS: Bacteria 1+ /hpf (None Seen); Mucous, Urine 3+ /hpf (<or=2+); Red Blood Cells-Urine 0-5 SEEN /hpf (0-5)
[2021-10-01 18:01] LABS: White Blood Cells 0-5 SEEN /hpf (0-5)
== END 2021-10-01 18:47 | disposition home or self-care (01) ==
PROVIDERS: Emergency Provider Emergency Medicine; PCP Internal Medicine; Visit Provider Emergency Medicine
DX: R53.1 Weakness (principal); D69.6 Thrombocytopenia, unspecified; R51.9 Headache, unspecified; R35.0 Frequency of micturition; R11.0 Nausea; Z79.02 Long term (current) use of antithrombotics/antiplatelets; Z79.899 Other long term (current) drug therapy; Z86.73 Personal history of transient ischemic attack (TIA), and cerebral infarction without residual deficits; Z87.442 Personal history of urinary calculi; Z87.891 Personal history of nicotine dependence
CPT/HCPCS: 70450; 71045; 80048; 81001; 85025; 93005; 99284; J7030; A4216